=== PATIENT | female | born 2000 | race Caucasian/White ===

== ENCOUNTER 2021-07-30 04:14 | Inpatient (IN) | payer BC ==
[~2021-07-30] VITALS: Ht 170.2 cm; Wt 97.7 kg
[2021-07-30] VITALS (21 sets, daily range): BP systolic 103–134; BP diastolic 54–84; PULSE 68–105; TEMP 97.8–98.7
--- NOTE | 2021-07-30 04:00 | NUR ---
G3L1 at 39 weeks and 3 days arrives to unit with complaint of contractions every 5 minutes since 0200. Pt denies loss of fluid or vaginal bleeding and reports good movement. Pt visibly very uncomfortable on arrival to unit. US and toco explained and applied. SVE 7/90/-3 with bulging bag of water. Vital signs obtained. Admission assessment started. See physician notification. 0415 - 18G IV started in left wrist with 1 attempt. Admission labs obtained off IV start. Lactated Ringers infusing to gravity. Consents reviewed and signed with spouse. Lia Beck [employer] notified to come to bedside for epidural placement.
--- NOTE | 2021-07-30 04:35 | NUR ---
0435 - Lia Beck CRNA at bedside for epidural placement. Procedure, risks, and benefits explained to patient, verbalized understanding. Pt positioned to sitting on edge of bed. 0438 - Single shot by KARELY Gudino at this time. Pt denies adverse reactions. 0445 - Pt positioned to wedge left for comfort. Safety precautions reviewed. Call light within reach, bed in low and locked position. See anesthesia record.
[2021-07-30] MEDS ORDERED: VALTREX 50500 MG/TAB PO (04:50)
--- NOTE | 2021-07-30 04:55 | NUR ---
Dr. Neely at bedside. SVE /-3. Artificial rupture of membranes at this time. Moderate amount of clear fluid noted. Pt positioned to wedge left for comfort.
[2021-07-30 04:58] LABS: HEMOGLOBIN 11.8 g/dl (12.5-16.0); MEAN CELL VOLUME 78 fl (80.0-100.0); MEAN CORPUSCULAR HEMOGLOBIN 26 pg (27.0-31.0); MEAN CORPUSCULAR HGB CONC 33 g/dl (33.0-37.0); MEAN PLATELET VOLUME 10.1 fl (7.4-10.4); PLATELET COUNT 216 K/mm3 (130-400); RED BLOOD COUNT 4.59 M/mm3 (4.10-5.30); REDCELL DISTRIBUTION WIDTH-CV 13.8 % (11.5-14.5)
[2021-07-30 05:05] LABS: HEMATOCRIT 35.6 % (37.0-47.0)
--- NOTE | 2021-07-30 05:15 | NUR ---
Recurrent late decelerations noted. SVE unchanged 8-/-3. Pt repositioned to right lateral with peanut ball.
[2021-07-30 05:55] LABS: BAND 8 % (0-10); LYMPHOCYTE 19 % (20.0-51.0); METAMYELOCYTE 1 % (0-0); NEUTROPHILS 64 % (42.0-75.2); PLATELET ESTIMATE NORMAL (NORMAL)
--- NOTE | 2021-07-30 06:10 | NUR ---
0535 - Recurrent late decelerations noted with minimal variability. SVE 10/100/-1. 0540 - Pt educated on pushing techniques, verbalized understanding. Positioned into footplates. 0542 - Initial push at this time. Pushing with good maternal effort, moving baby well. 0600 - Recurrent variable and late decelerations down to 100 bpm noted after pushes. Spontaneous return to baseline of 140 bpm. Pt continues to push well. 0605 - Dr. Neely at bedside to evaluate pushing efforts. 0610 - Room set up for delivery. Dr. Neely gowned and gloved at perineum. Nursery RN called to bedside. Sandra Last, RN at bedside assuming care of patient.
--- NOTE | 2021-07-30 06:14 | NUR ---
06:14:26-Spontaneous vaginal delivery of head by . Loose nuchal x1 reduced prior to delivery of shoulders. 06:14:40-Spontaneous vaginal delivery of female by . True knot in umbilical cord noted. Infant to mother's abdomen, dried and stimulated by Syeda, RN, nursery nurse. Umbilical cord doubly clamped by , cut by father of baby with instruction from .
--- NOTE | 2021-07-30 06:22 | NUR ---
Red Devin catheter by at this time following periurethral lac repair with 3-0 Chromic on SH. Approximately 150 mL urine return.
--- NOTE | 2021-07-30 06:22 | NUR ---
of placenta by at this time. Pit bolus begun immediately following @ 333mU/min.
--- NOTE | 2021-07-30 08:30 | NUR ---
Assisted up to BR for first time post delivery. Lexis care provided. Patient unable to spontaneously void @ this time. Mesh underwear, lexis pad, ice pack, clean gown provided. Ambulates to room 208 following.
[2021-07-31 07:16] VITALS: BP 117/67; PULSE 73; TEMP 97.9
[2021-07-31] MEDS ORDERED: MOTRIN 600600 MG/TAB PO (08:52)
--- NOTE | 2021-07-31 09:19 | NUR ---
Initial visit; Patient thanked Process Mold Technician for offering congratulations and God's blessings for the of her daughter. Process Mold Technician thanked patient for choosing [facility].
== END 2021-07-31 11:45 | disposition home or self-care (01) | DRG 806 ==
LOC: LDR 04:14 → OB 08:35
PROVIDERS: Obstetrics & Gynecology; ADMIT Obstetrics & Gynecology
PROC: 10E0XZZ Delivery of Products of Conception, External Approach (ICD-10-PCS; principal; 2021-07-30)
PROC: 0UQMXZZ Repair Vulva, External Approach (ICD-10-PCS; 2021-07-30)
DX: O69.2XX0 Labor and delivery complicated by other cord entanglement, with compression, not applicable or unspecified (principal); O98.32 Other infections with a predominantly sexual mode of transmission complicating childbirth; Z37.0 Single live birth; O69.81X0 Labor and delivery complicated by cord around neck, without compression, not applicable or unspecified; O70.9 Perineal laceration during delivery, unspecified; A60.09 Herpesviral infection of other urogenital tract; Z3A.39 39 weeks gestation of pregnancy
CPT/HCPCS: J2590; J7120